=== PATIENT | male | born 1995 | race Caucasian/White ===

== ENCOUNTER 2019-11-26 06:34 | Day surgery (SDC) | payer OTHER ==
[~2019-11-26 06:34] MED LIST: cefTRIAXone 2 GM VIAL ONE
[2019-11-26] MEDS ORDERED: LACTATED RINGERS 1,000 ML IV ONE ×3 (06:39→12:46)
--- NOTE | 2019-11-26 06:57 | ANESTHESIA ---
Pre-Anesthesia VS, & Labs - Diagnosis Right shoulder SLAP repair - Procedure Right shoulder SLAP repair Vital Signs: Temp Pulse Resp BP Pulse Ox 36.6 C 75 16 93/81 H 99 11/26/19 06:45 11/26/19 06:45 11/26/19 06:45 11/26/19 06:45 11/26/19 06:45 Height 5 ft 10 in Weight (kg) 79 kg - NPO >8 hours - Lab Results Lab results reviewed: No Home Medications and Allergies Home Medications: Ambulatory Orders No Known Home Medications 11/18/19 No Known Home Medications 11/18/19 Allergies/Adverse Reactions: Allergies Allergy/AdvReac Type Severity Reaction Status Date / Time No Known Drug Allergies Allergy Verified 11/18/19 11:38 Anes History & Medical History - Anesthetic History Anesthesia Complications: reports: No previous complications Family history of Anesthesia Complications: Denies Family history of Malignant Hyperthermia: Denies - Medical History Cardiovascular: reports: None Pulmonary: reports: None Gastrointestinal: reports: None Urinary: reports: None Neuro: reports: None Musculoskeletal: reports: None, Other Endocrine/Autoimmune: reports: None Blood Disorders: reports: None Skin: reports: None Smoking Status: Never smoker Psychosocial: reports: No issues indicated Exam General: Alert, Oriented x3 Dental: WNL Mouth Opening: Greater than 4 Fingerbreadths Neck Mobility: Normal Mallampati classification: I Thyromental Distance: greater than 6 cm Respiratory: Lungs clear Cardiovascular: Regular rate Mental/Cognitive Status: Alert/Oriented X3 Cognitive Status: Within normal limits Plan Anesthesia Type: General, Interscalene Block Consent for Procedure(s) Verified and Reviewed: Yes Code Status: Attempt Resuscitation ASA classification: 1-Healthy patient Is this case an emergency?: No
[2019-11-26] MEDS ORDERED: EPINEPHrine 1 MG/ML AMP ONE (07:08)
[2019-11-26] MEDS ORDERED: BUPIVACAINE 0.25% PF 30 ML VIAL ONE (07:08)
[2019-11-26] MEDS ORDERED: ROPIVACAINE 0.5% PF 20 ML AMPULE ONE (07:21)
[2019-11-26] MEDS ORDERED: PROPOFOL 200 MG/20 ML VIAL IVP ONE (08:09)
[2019-11-26] MEDS ORDERED: fentaNYL 100 MCG/2 ML VIAL IVP ONE (08:09)
[2019-11-26] MEDS ORDERED: ONDANSETRON 4 MG/2 ML VIAL IVP ONE (08:09)
[2019-11-26] MEDS ORDERED: KETOROLAC 30 MG/ML VIAL IVP ONE (08:09)
[2019-11-26] MEDS ORDERED: MIDAZOLAM 2 MG/2 ML VIAL IVP ONE (08:09)
[2019-11-26] MEDS ORDERED: LIDOCAINE-MPF 2% 5 ML VIAL IM ONE (08:09)
[2019-11-26] MEDS ORDERED: ROCURONIUM 50 MG/5 ML VIAL IVP ONE (08:09)
[2019-11-26] MEDS ORDERED: DEXAMETHASONE 4 MG/ML VIAL IVP ONE (08:09)
[2019-11-26] MEDS ORDERED: EPINEPHrine 1 MG/ML AMP IR ONE (09:45)
[2019-11-26] MEDS ORDERED: BUPIVACAINE 0.25% PF 30 ML VIAL SUBQ ONE ×2 (11:01)
[2019-11-26] MEDS ORDERED: ONDANSETRON 4 MG/2 ML VIAL IVP PRN (13:11)
[2019-11-26] MEDS ORDERED: oxyCODONE 5 MG TABLET PO PRN (13:11)
--- NOTE | 2019-11-26 13:15 | IMMEDIATE POSTOPERATIVE NOTE ---
Immediate Postoperative Note - Procedure Note Procedure Date: 11/26/19 Pre-Op Diagnosis: Right shoulder SLAP tear, anterior labral tear Procedure: Right shoulder arthrocopy, rotator cuff debridement, anterior and posterior labral repair, biceps tenodesis Post-Op Diagnosis: Right shoulder SLAP tear, anterior and posterior labral tear, partial cuff Primary Surgeon: SELENA FARRIS Anesthesia Type: General ET tube, Regional block Complications: No complications Estimated Blood Loss (in cc): 25 Plan of Care: Discharge home when criteria met
[2019-11-26 14:37] VITALS: BP 130/69
--- NOTE | 2019-11-27 17:11 | OPERATIVE REPORT ---
Operative Report - General Procedure Date: 11/26/19 Planned Procedure: Right shoulder arthroscopy, labral repair and biceps tenodesis Pre-Op Diagnosis: Right shoulder SLAP tear, anterior labral tear Procedure Performed: Right shoulder arthroscopy, rotator cuff debridement, SLAP debridement, anterior and posterior labral repair, open sub pec biceps tenodesis Post Op Diagnosis: Right shoulder SLAP tear, anterior & posterior labral tear, partial cuff te - Procedure Note Primary Surgeon: SELENA FARRIS Anesthesia Technique: General ET tube, Regional block Estimated Blood Loss (mL): 25 - Other Other Information/Narrative: Date of Operation: November 26, 2019 Pre-operative Diagnosis: right shoulder SLAP tear and right shoulder anterior inferior labral tear. Post-operative Diagnosis: right shoulder SLAP tear, near circumferential labral tear, partial thickness under surface Supraspinatus tear Specimen(s): None Indication for the procedure: the patient is a 24-year-old right-hand dominant male who had onset of right shoulder pain and instability approximately two years ago. He underwent extensive nonoperative management, which improved his symptoms for a time, but which he ultimately failed, with increasing pain and decreasing function of the right shoulder particularly with overhead activities. He reports that he does not trust the shoulder in the 90/90 abduction external rotation position. Physical exam was consistent with a right shoulder SLAP lesion, anterior inferior labral tear, along with some signs of rotator cuff irritation. MRI was obtained suggestive of a right shoulder SLAP tear, as well as and anterior inferior labral tear. Risks benefits and alternatives to surgery were discussed. Risks including continued pain, bleeding, infection, shoulder stiffness, need for extensive rehabilitation, damage nerves blood vessels and other surrounding structures, blood clot, heart attack, stroke, were discussed. Expected rehab timeline was discussed. Following discussion the patient desire to proceed surgery. Preoperative examination under anesthesia: Forward flexion 180, abduction 170, external rotation 70, abducted external rotation 90, abducted internal rotation 80. Anterior load and shift 1+, posterior load and shift 1+ Arthroscopic findings: 1. Biceps: biceps tendon itself was normal appearing, without significant lipstick lesion, however, the entire superior labrum was torn, with instability of the biceps anchor. 2. Anterior labrum: Torn from approximate 3 o'clock anterior with associated anterior/anterior-inferior GLAD lesion to a proximally 6 o'clock inferior. From 6 o'clock inferior posteriorly to approximately 10 o'clock, the chondral label junction had a Edilia lesion, and was unstable to probing. 3. Posterior labrum: unstable from 6 o'clock inferior to approximately 10 o'clock, where this became confluent with the posterior edge of the SLAP tear 4. Superior labrum: unstable type 2 SLAP tear as above 5. Rotator cuff: under surface fraying of the supraspinatus, fraying of the rotator interval, distal supraspinatus tendon and insertion intact, infraspinatus and teres minor intact, subscapularis, some fraying at the biceps sling, but insertion appears intact. 6. Capsule: No HAGL or reverse HAGL appreciated 7. Chondral surfaces: anterior GLAD lesion, with some chondral separation around the inferior margin of the glenoid to approximately the 8 o'clock position in the back. Implants: Arthrex 2.9 mm short bio composite push lock anchors with labral tape 2. Positions: 3:00, 4:00 anterior. Arthrex 3 mm knotless suture tack x 5. Positions 5:00, 6:00, 7:00, 8:00, 9:00. There was an additional suture tack that was implanted, but unloaded during suture passing, the implant was left in place. There was a suture tack which broke on insertion and was removed, and three suture tacks which were placed at the 4 o'clock position, but each of which pulled out of the bone during suture tensioning. This position was ultimately fixated using a push lock anchor with labral tape as above. Arthrex fiber tack x1 for the biceps tenodesis Procedure Details: The patient was met in the preoperative hold area. Consent was reviewed. All questions were answered. The patient verified the surgical site as the right shoulder. I then initialed the operative shoulder The patient then met with anesthesia and regional block was performed. The patient was brought back to the operating room. The patient was transferred onto the operating table and placed into the supine position. General anesthesia was induced The patient was then placed into a lateral decubitus position and held in position with a beanbag p ositioner with the operative extremity facing up. An axillary roll was placed 2 fingerbreadths distal to the axilla. An examination under anesthesia was performed with the above-stated findings. The operative shoulder was then prepped and draped in the usual sterile fashion for orthopedic surgery. A surgical timeout was then performed: the correct patient, the correct procedure, and the correct surgical site were confirmed by everyone in the room. Preoperative antibiotics had been administered. The operative extremity was placed into a STaR sleeve, and 10 pounds of axial traction with slight forward flexion and abduction with an abduction strap were used to secure the arm in position. The bony landmarks were marked with an indelible pen, an 11 blade scalpel was used to make a posterior arthroscopic portal. The arthroscope was introduced into the glenohumeral joint. A superior anterior portal was established under direct visualization. A second anterior portal at the mid glenoid level was established. A diagnostic arthroscopy was performed with the above-stated findings. A limited debridement of the rotator interval, and under surface supraspinatus tear was performed using the arthroscopic sucker shaver. Following debridement, the cuff was inspected, with intact distal insertion. The long head of the biceps tendon was cut edits insertion to the superior labrum. The remnant stump was then debrided using the arthroscopic sucker shaver. Loosen frayed tissue around the superior labrum/SLAP tear was debrided using arthroscopic sucker shaver. Once this was complete, I turned my attention to mobilization of the labral tear and preparation of the glenoid. Using a spatula elevator, arthroscopic rasp, and the arthroscopic sucker shaver the labrum tear and glenoid rim were prepared. After adequate preparation of the glenoid rim and mobilization of the labral tear and capsule, a percutaneous posterior portal was placed using needle localization under direct visualization at the inferior aspect of the glenoid in order to place the inferior and posterior anchors. We then began our anchor placement. I began the repair at the inferior portion, placing the six clock and 7 o'clock anchors using the percutaneous portal for drilling and anchor placement. The secure the inferior labor nicely I then finished the posterior labral repair by placing anchors at the 8 o'clock and 9 o'clock positions. This this provided a nice posterior labral bumper, with improved capsulolabral tension. Once the posterior repair was finished, I turned my attention anteriorly. The 5 o'clock anchor was placed through the mid glenoid portal, followed by the 4 o'clock anchor. The 4 o'clock anchor was placed multiple times, due to several anchors pulling out of the bone during tensioning, despite apparent adequate fixation with initial testing following insertion. It is unclear why the anchors were pulling out on attempted tensioning. Ultimately the decision was made to utilize a 2.9 mm push lock in this location. An Arthrex labral tape was passed using a suture lasso at the 4:30 position and a 2.9 mm short bio composite push lock anchor was placed at the 4:00 position which resulted in an nice capsular shift and capsulorrhaphy. A final anterior anchor (2.9 mm push lock with labral tape) was placed in a similar fashion at 3:00, incorporating some of the fibers of the [facility] L and goetz perior fibers of the AIG HL into the capsulorrhaphy. This re-created the hopland labrum with an excellent bumper effect and capsulorrhaphy. An arthroscopic probe was used to test the repair and it was secure. Abduction traction was removed from the shoulder, and humeral head centered nicely on the glenoid. The arthroscopic instruments were removed from the shoulder and I turned my attention to the biceps tenodesis. The shoulder was re-prepped with chloraprep and once this a dried, surgical marker was used to sangeeta the location of the pectoralis major tendon, and then an approximately 4 cm longitudinal incision was marked out. This sharp incised using 15 blade, followed by electrocautery to expose the deep fascia. Dissecting scissor then used enter the fascia, and blunt digital dissection was used to find the plane underneath the pectoralis major tendon, where the biceps tendon was located. Using a right angle clamp, this was delivered from the incision. The anterior surface of the tendon was marked using surgical marker. A nguyen elevator was used to remove any soft tissue from the bicipital groove in preparation for implant placement and tenodesis. Once the top tissue been removed and the bone is exposed, the drill guide for the fiber tack was placed and drilled. The fiber tack was placed intention to ensure secure fit. Upon tensioning, the fiber tack came out of the wound. The bone was re-drilled in the fiber tack repassed, this time with a secure fit. I then measured 2cm from the musculotendinous junction of the biceps, and used one limb of the fiber tack suture to whip stitch distally down the tendon to the musculotendinous junction and then proximally back up to the 2 cm sangeeta. The other limb of the suture was then passed through the tendon at the 2cm sangeeta. Excess tendon was excised, and by pulling on the post, the biceps tendon was delivered into the wound and held fast to the bony surface. Tension was maintained on the post, and a series of 3 half hitches were used to secure the tendon initially followed by 4 reversing half hitches on alternating posts secure the knot. Digital palpation of the tendon demonstrated good tension, without undue tightness the arm was brought into full extension. The suture tales were cut, and the wounds were copiously irrigated. I then began closure. The biceps tenodesis site was closed using buried 2-0 Vicryl interrupted, followed by a running 3-0 Monocryl in subcuticular fashion. This incision was then sealed with dermabond, and once the Dermabond was dry, reinforced using Steri-Strips. The suture ends were held in place with Steri- Strips. 10 mL of quarter percent Marcaine plane was injected around the biceps tenodesis incision. The arthroscopic portals were closed with a 3-0 Monocryl, followed by Mastisol a nd Steri-Strips and then covered with Xeroform gauze. Plain gauze and ABD pads were placed over the shoulder area and medipore tape was used to secure the dressings in place. The surgical drapes were removed. A shoulder sling with abduction pillow were placed on the operative extremity. The patient was awoken from anesthesia, extubated, transferred onto the hospital bed, and taken to the PACU for recovery in good condition.
== END 2019-11-26 06:35 | disposition home or self-care (01) ==
LOC: SDS 06:34
PROVIDERS: ATTEND Orthopaedic Surgery
PROC: 0RQJ4ZZ Repair Right Shoulder Joint, Percutaneous Endoscopic Approach (ICD-10-PCS; 2019-11-26)
PROC: 0LS10ZZ Reposition Right Shoulder Tendon, Open Approach (ICD-10-PCS; 2019-11-26)
PROC: 0RHJ04Z Insertion of Internal Fixation Device into Right Shoulder Joint, Open Approach (ICD-10-PCS; 2019-11-26)
PROC: 0RBJ4ZZ Excision of Right Shoulder Joint, Percutaneous Endoscopic Approach (ICD-10-PCS; principal; 2019-11-26 08:00)
DX: S43.431A Superior glenoid labrum lesion of right shoulder, initial encounter (principal); S43.491A Other sprain of right shoulder joint, initial encounter; M75.111 Incomplete rotator cuff tear or rupture of right shoulder, not specified as traumatic

== ENCOUNTER 2020-01-17 16:32 | Emergency (ER) | payer OTHER ==
--- NOTE | 2020-01-17 17:33 | ED Physician Documentation ---
PD HPI HEENT - Stated complaint Stated Complaint: NAUS/VOM/DIZZY/CHILL - Chief complaint Chief Complaint: Heent - History obtained from History obtained from: Patient - History of Present Illness Timing - onset: Today Timing - details: Abrupt onset (was lying in bed and turned over, with onset of marked vertigo, nausea with it. No headache, no head injury, no recent URI symptoms.), Still present (when he turns his head) Location: Other (abrupt vertigo). No: Right ear, Left ear Improves: Other (holding still, head neutral) Worsens: Position, Other (moving head side to side, more to the left.) Associated symptoms: Other (no medications). No: Fever, Congestion, Rhinorrhea, Headache Similar symptoms before: Has not had sx before Recently seen: Not recently seen Review of Systems Constitutional: denies: Fever, Chills Nose: denies: Rhinorrhea / runny nose, Congestion Throat: denies: Sore throat Respiratory: denies: Cough PD PAST MEDICAL HISTORY - Past Medical History Cardiovascular: None Respiratory: None Neuro: None Endocrine/Autoimmune: None GI: None : None HEENT: None Psych: None Musculoskeletal: None, Other Derm: None - Present Medications Home Medications: Ambulatory Orders Medication Instructions Recorded Confirmed Cetirizine [ZyrTEC] 10 mg PO DAILY #10 tablet 01/17/20 Meclizine HCl [Motion Sickness 25 mg PO Q6H PRN #25 tablet 01/17/20 Relief] dexAMETHasone [Decadron] 4 mg PO DAILY #5 tablet 01/17/20 - Allergies Allergies/Adverse Reactions: Allergies Allergy/AdvReac Type Severity Reaction Status Date / Time No Known Drug Allergies Allergy Verified 01/17/20 16:54 - Social History Smoking Status: Never smoker PD ED PE NORMAL - Vitals Vital signs reviewed: Yes - General General: Alert and oriented X 3, No acute distress, Well developed/nourished - HEENT HEENT: PERRL, EOMI (with nystagmus to the left), Moist mucous membranes, Pharynx benign - Neck Neck: Supple, no meningeal sign, No adenopathy, No bruit - Cardiac Cardiac: RRR, No murmur - Respiratory Respiratory: Clear bilaterally - Abdomen Abdomen: Soft, Non tender - Back Back: No CVA TTP - Derm Derm: Normal color, Warm and dry - Neuro Neuro: Alert and oriented X 3, c engineer 2-12 intact, No motor deficit, No sensory deficit, Normal speech Eye Opening: Spontaneous Motor: Obeys Commands Verbal: Oriented GCS Score: 15 - Psych Psych: Normal mood, Normal affect Results - Vitals Vitals: Vital Signs - 24 hr 01/17/20 01/17/20 16:51 18:27 Temperature 37.3 C 36.7 C Heart Rate 89 87 Respiratory 18 16 Rate Blood Pressure 133/82 H 129/75 O2 Saturation 99 97 Oxygen O2 Source Room air PD MEDICAL DECISION MAKING - ED course Complexity details: considered differential (presume inner ear dysfunction. No other symptoms. Does have nystagmus. Low risk for cerebrovascular. ), d/w patient Departure - Departure Disposition: 01 Home, Self Care Clinical Impression: Acute onset of severe vertigo Condition: Stable Record reviewed to determine appropriate education?: Yes Instructions: ED Vertigo Unspecified Follow-Up: TABBY PEDROZA MD [Primary Care Provider] - Prescriptions: Cetirizine [ZyrTEC] 10 mg PO DAILY #10 tablet dexAMETHasone [Decadron] 4 mg PO DAILY #5 tablet Meclizine HCl [Motion Sickness Relief] 25 mg PO Q6H PRN #25 tablet PRN Reason: Vertigo Comments: Rest and avoid sudden movements or turning your head quickly. Off work for 2 to 3 days. Meclizine every 6-8 hours if needed for dizziness to decrease symptoms. Decadron anti-inflammatory and cetirizine antihistamine daily for a week or so to decrease presumed cause which is likely some inflammation or fluid pressure buildup in the inner ear. Recheck if not improved well over the next several days and return sooner if worse or other symptoms. Some mild head cold symptoms would actually make sense so if those develop, not to worry. Forms: Activity restrictions Discharge Date/Time: 01/17/20 18:27
[2020-01-17] MEDS ORDERED: CETIRIZINE 10 MG TABLET PO STA (18:00)
[2020-01-17] MEDS ORDERED: MECLIZINE 12.5 MG TABLET PO STA (18:00)
[2020-01-17] MEDS ORDERED: CHERRY SYRUP 10 ML UDC PO ONE (18:00)
[2020-01-17] MEDS ORDERED: DEXAMETHASONE 10 MG/ML VIAL PO STA (18:00)
[2020-01-17 18:38] VITALS: BP 129/75
== END 2020-01-17 18:27 | disposition home or self-care (01) ==
LOC: ED 16:32
DX: R42 Dizziness and giddiness (principal); R11.0 Nausea
CPT/HCPCS: 99283; 99284; A9270